=== PATIENT | female | born 1960 | race Caucasian/White ===

== ENCOUNTER 2025-03-04 18:11 | Inpatient (IN) | payer MEDICAID ==
[~2025-03-04] VITALS: Ht 165.1 cm; Wt 75.0 kg
[~2025-03-04 18:11] MED LIST: AZIT-74 PO; CARI250T; HYDR-1421; METH4PAK PO; QUET25TA37; SERT25TA84; TRAM50TA2 PO; TRAZ-227
--- NOTE | 2025-03-04 18:33 | ECG ---
[facility] Test Date: 2025-03-04 Test Time: 18:17:02 Pat Name: GERA REECE [facility] Gender[facility] F Operator Bearer Systems: KINDRA : 1960 Requested By: DIVYA BAUTISTA* Order Number: [id number] Reading MD: Pedro Pepe Measurements Intervals [place] Rate: 103 P: 86 [place]: 184 QRS: 83 QRSD: 99 T: 30 QT: 326 QTc: 427 Interpretive Statements Sinus tachycardia Multiple ventricular premature complexes Biatrial enlargement Consider right ventricular hypertrophy Electronically Signed On 03-05-2025 17:26:14 PST by Pedro Pepe Please click the below link to view image of tracing.
[2025-03-04] MEDS: IPRATROPIUM BROM 0.5 MG/2.5ML INH SOL NEB ONE (18:45)
[2025-03-04] MEDS: ALBUTEROL SULF 2.5 MG/0.5ML(0.5%) NEB SOLN NEB ONE ×2 (18:45→19:15)
[2025-03-04 18:57] LABS: Hematocrit 44.7 % (36.0-46.0); Hemoglobin 15.3 g/dL (12.2-16.2); Mean Corpuscular Hemoglobin 31.1 pg (28.0-32.0); Mean Corpuscular Volume 90.7 fL (80.0-100.0)
--- NOTE | 2025-03-04 18:59 | DVH ---
EXAM: XY CHEST XRAY 1 VIEW HISTORY: Shortness of breath TECHNIQUE: 1 view of the chest COMPARISON: XR CHEST 1 VIEW on DOS: 09/13/23 FINDINGS/IMPRESSION: LUNGS: No pleural effusion, consolidation, or pneumothorax. MEDIASTINUM: Unremarkable. BONES: No acute osseous abnormality. OTHER: None.
--- NOTE | 2025-03-04 19:14 | ED.PDOC ---
History of Present Illness HPI Comments 64 year-old female presents to the ED with a chief complaint of cough, SOB, and chest tightness as of X3 days. Patient reports a Hx of COPD, Epilepsy, Asthma, and GERD. Patient reports attempted alleviation via inhaler at home, with no relief. Patient denies symptoms of leg swelling, dizziness, weakness, or fever at this time. REVIEW OF SYSTEMS: General: No fever, no chills, or fatigue HEENT: No sore throat, no earache, no congestion, no neck pain. Cardiac: (+) chest tightness. No palpitations. Lungs: (+) shortness of breath, (+) cough. GI: No nausea, no vomiting, no diarrhea, no constipation, no abdominal pain : No dysuria, frequency, or urgency. No hematuria. Musculoskeletal: No joint pain , no joint swelling, no extremity edema. Skin: No rash, no itching. Neuro: No headache, no dizziness, no weakness (And as sated in HPI) PHYSICAL EXAM: General: (+) speaking in short sentences. Awake, alert and oriented. Skin: Skin in warm, dry and intact. Appropriate color for ethnicity. HEENT: The head is normocephalic and atraumatic. Conjunctivae are clear without exudates or hemorrhage. Sclera is non-icteric. Eyelids are normal in appearance without swelling or lesions. Oral mucosa is pink and moist Neck: The neck is supple with normal range of motion. No JVD. Cardiac: Heart rate and rhythm are normal. No murmurs, gallops, or rubs are auscultated. Respiratory: (+) diminished breath sounds bilaterally. (+) tachypneic. No signs of respiratory distress. Abdominal: Abdomen is soft, non-tender without distention, guarding or rigidity. Bowel sounds are present and normoactive in all four quadrants. Extremities: Lower extremities without edema. Neurological: The patient is awake, alert and oriented to person, place, and time with normal speech. Speech is clear. There is no facial asymmetry. Psychiatric: Appropriate mood and affect. Good judgement and insight. . Chief Complaint: Shortness of Breath Time Seen by MD: 19:00 Primary Care Provider: UNKNOWN Reviewed Notes: Medications, Allergies Allergies: Coded Allergies: Baclofen (Verified Allergy, Severe, 03/04/25) Codeine (Verified Allergy, Severe, 06/06/11) Penicillins (Verified Allergy, Severe, 06/06/11) Home Meds Active Scripts Prednisone (Prednisone) 20 Mg Tab, 40 MG PO DAILY for 5 Days, #10 MG Prov:ZHENG ISBELL MD 03/04/25 Ipratropium-Albuterol (Ipratropium [place]/Albut) 1 Franko Franko, 1 FRANKO IN Q4HPRN PRN for 5 Days, #30 UNITS Prov:ZHENG ISBELL MD 03/04/25 Albuterol Sulfate (Albuterol Sulfate) 0.083 % Neb, 1 VIAL NEB Q4HPRN PRN for 5 Days, #5 VIAL Prov:ZHENG ISBELL MD 03/04/25 Respiratory Therapy Supplies (Full Kit Nebulizer Set) Set Mis, UNIT XX ONCE, #1 Prov:ZHENG ISBELL MD 03/04/25 Azithromycin (Zithromax) 250 Mg Tab, 500 MG PO DAILY, #6 TAB take 500 mg po once then take 250 mg po qd2-5 thereafter Prov:JAMESON MASTERSON N.P. 02/27/13 Methylprednisolone (Medrol Dosepak) 4 Mg Arnold, 4 MG PO UD, #1 PACK Prov:JAMESON MASTERSON N.P. 02/27/13 Tramadol Hcl (Tramadol Hcl) 50 Mg Tab, 50 MG PO Q6HP PRN, #30 TAB Prov:JAMESON MASTERSON N.P. 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 Was a procedure done?: No EKG EKG : Pulse Rate (adult): 103 Comments Sinus tachycardia Multiple ventricular premature complexes Biatrial enlargement Consider right ventricular hypertrophy Differential Dx Considerations may include: Differential diagnoses considered includebut arenot limited to acute Bronchitis, Asthma, COPD, Pneumothorax, PE, CHF, Pulmonary HTN, Anemia, CO Poisoning, Methemoglobinemia, Hyperventilation, Metabolic Acidosis, Pulmonary Edema, Pneumonia, ACS, Pericardial Tamponade, Anxiety, other X-Ray, Labs, Meds, VS Vital Signs Date Time Temp Pulse Resp B/P (MAP) Pulse Ox O2 Delivery O2 Flow Rate FiO2 03/04/25 20:03 20 92 Nasal Cannula* 2 28 03/04/25 19:36 98.1 102 16 112/77 (89) 92 98.1 03/04/25 19:14 103 03/04/25 18:45 20 94 Room Air* 0 21 03/04/25 18:12 98.1 120 20 156/90 95 98.1 Lab Test 03/04/25 20:52 03/04/25 18:42 03/04/25 18:40 03/04/25 18:38 Range/Units Lactic Acid Level 2.5 *H 2.1 *H 0.4-2.0 mmol/L White Blood Count 6.6 4.4-10.8 10^3/uL Red Blood Count 4.92 4.0-5.20 10^6/uL Hemoglobin 15.3 12.2-16.2 g/dL Hematocrit 44.7 36.0-46.0 % Mean Corpuscular Volume 90.7 80.0-100.0 fL Mean Corpuscular Hemoglobin 31.1 28.0-32.0 pg Mean Corpuscular Hemoglobin Concent 34.3 32.0-36.0 g/dL Red Cell Distribution Width 13.9 11.8-14.3 % Platelet Count 306 140-450 10^3/uL Mean Platelet Volume 7.3 6.9-10.8 fL Neutrophils (%) (Auto) 37.0-80.0 % Lymphocytes (%) (Auto) 10.0-50.0 % Monocytes (%) (Auto) 0.0-12.0 % Basophils (%) (Auto) 0.0-2.0 % Neutrophils # (Auto) 1.6-8.6 10 ^3/uL Lymphocytes # (Auto) 0.4-5.4 10 ^3/uL Monocytes # (Auto) 0-1.3 10 ^3/uL Differential Total Cells Counted 100.0 100 Neutrophils % (Manual) 32 L 37.0-80.0 Band Neutrophils % (Manual) 0 Lymphocytes % (Manual) 58 H 10.0-50.0 Monocytes % (Manual) 9 0-12 Eosinophils % (Manual) 1 0-7 Basophils % (Manual) 0 0.0-2.0 Metamyelocytes % (manual) 0 Myelocytes % (Manual) 0 Promyelocytes % (Manual) 0 Blast Cells % (Manual) 0 Reactive Lymphocytes 0 Platelet Estimate Adequate Red Blood Cell Morphology Normal D-Dimer, Quantitative 0.50 H 0.0-0.49 mg/L FEU Sodium Level 144 136-145 mmol/L Potassium Level 4.6 3.5-5.1 mmol/L Chloride Level 106 98-107 mmol/L Carbon Dioxide Level 26 20-31 mmol/L Anion Gap 12 5-15 Blood Urea Nitrogen 12 9-23 mg/dL Creatinine 0.89 0.550-1.02 mg/dL Glomerular Filtration Rate Calc 72 >90 mL/min BUN/Creatinine Ratio 13.5 10.0-20.0 Serum Glucose 100 74-106 mg/dL Calcium Level 10.3 8.7-10.4 mg/dL Magnesium Level 2.2 1.6-2.6 mg/dL Total Bilirubin 0.5 0.2-1.0 mg/dL Aspartate Amino Transferase (AST) 35 13-40 U/L Alanine Aminotransferase (ALT) 35 7-40 U/L Alkaline Phosphatase 84 46-116 U/L Troponin I High Sensitivity 3 L </=34 ng/L B-Type Natriuretic Peptide 10.82 0-100 pg/mL Total Protein 7.3 5.7-8.2 g/dL Albumin 4.5 3.2-4.8 g/dL Blood Gas Specimen Type Arterial Blood Gas Sample Site Left radial Blood Gas Patient Temperature 37.0 Arterial Blood Date Drawn [id number] Arterial Blood pH 7.453 H 7.350-7.450 Arterial Blood Partial Pressure CO2 30.5 L 32.0-45.0 mmHg Arterial Blood Partial Pressure O2 59.7 L 83.0-108.0 mmHg Arterial Blood HCO3 20.9 L 21.0-28.0 mmol/L Arterial Blood Oxygen Saturation 90.5 L 94.0-98.0 % Arterial Blood Base Excess -1.9 -2.0-3.0 mmol/L Arterial Blood Oxyhemoglobin 89.2 L 94.0-98.0 % Arterial Blood Carboxyhemoglobin 0.9 0.5-1.5 % Arterial Blood Methemoglobin 0.5 0.0-1.5 % Arterial Blood Deoxyhemoglobin 9.4 H 0.0-5.0 % Rasta Test Yes Blood Gas Total Hemoglobin 15.30 12.0-16.0 g/dL Blood Gas Modality Room air FiO2 % 21.0 Influenza Type A Antigen Negative Negative Influenza Type B Antigen Negative Negative SARS-CoV-2 Antigen (Rapid) Negative NEGATIVE Current Medications Medications (Trade) Dose Ordered Sig/[place] Route Start Time Stop Time Status Last Admin Albuterol (Ventolin Medneb) 2.5 mg ONCE ONCE NEB 03/04/25 18:30 03/04/25 18:31 DC 03/04/25 18:45 Ipratropium [place] (Atrovent Medneb) 0.5 mg ONCE ONCE NEB 03/04/25 18:30 03/04/25 18:31 DC 03/04/25 18:45 Albuterol (Ventolin Medneb) 5 mg ONCE ONCE NEB 03/04/25 19:15 03/04/25 19:16 DC 03/04/25 19:15 Dexamethasone Sodium Phosphate (Decadron Injection) 10 mg ONCE ONCE IM 03/04/25 19:15 03/04/25 19:16 DC 03/04/25 19:35 Sodium Chloride 1,000 ml @ 2,000 mls/hr Q30M ONCE IV 03/04/25 20:00 03/04/25 20:29 DC 03/04/25 21:03 [place] [id number] Ph: [phone] DIAGNOSTIC IMAGING Diagnostic Imaging Report : [id number] Signed PATIENT: GERA REECE ACCT: [id number] UNIT: [id number] : 1960 LOC: ER ROOM / BED: / AGE / SEX: 64 / F ADM STATUS: REG ER SERVICE 211 ORDERING PHYSICIAN: ZHENG ISBELL MD PROCEDURE(s): CXR1 - CHEST XRAY 1 VIEW REASON: Shortness of breath ORDER NUMBER(s): [id number], ACCESSION NUMBER(s): [id number] EXAM: XY CHEST XRAY 1 VIEW HISTORY: Shortness of breath TECHNIQUE: 1 view of the chest COMPARISON: XR CHEST 1 VIEW on DOS: 09/13/23 FINDINGS/IMPRESSION: LUNGS: No pleural effusion, consolidation, or pneumothorax. MEDIASTINUM: Unremarkable. BONES: No acute osseous abnormality. OTHER: None. Time of 1ST Reevaluation: 19:39 Reevaluation 1ST: Unchanged Patient Education/Counseling: Diagnosis, Treatment Family Education/Counseling: No Family Present SEPSIS Sepsis Screen Date sepsis recognized/suspect: Mar 04, 2025 Time Sepsis recognized/suspect: 1813 Recent Procedure: No On Antibiotic Therapy: No Respiratory Rate >20: No Heart Rate >90: No Temp<36 C (96.8 F) or >38.3 C: No SBP <90 or MAP <65 mmHG: No New Acute Mental Status Change: No Is the patient on CPAP, BIPAP,: No Physician Orders Abg W/ Co-Ox (03/04/25 18:22) Chest Xray 1 View (03/04/25 18:22) Notify Md If Abnormal Vs (03/04/25 20:09) Ambulate (03/04/25 20:09) Vital Signs Date Time Temp Pulse Resp B/P (MAP) Pulse Ox O2 Delivery O2 Flow Rate FiO2 03/04/25 20:03 20 92 Nasal Cannula* 2 28 03/04/25 19:36 98.1 102 16 112/77 (89) 92 98.1 03/04/25 19:14 103 03/04/25 18:45 20 94 Room Air* 0 21 03/04/25 18:12 98.1 120 20 156/90 95 98.1 Laboratory Tests Test 03/04/25 18:42 03/04/25 20:52 Lactic Acid Level 2.1 mmol/L (0.4-2.0) *H 2.5 mmol/L (0.4-2.0) *H White Blood Count 6.6 10^3/uL (4.4-10.8) Medications Medications Dose Ordered Sig/[place] Route Start Time Stop Time Status Last Admin Dose Admin Albuterol 2.5 mg ONCE ONCE NEB 03/04/25 18:30 03/04/25 18:31 DC 03/04/25 18:45 Albuterol 5 mg ONCE ONCE NEB 03/04/25 19:15 03/04/25 19:16 DC 03/04/25 19:15 Dexamethasone Sodium Phosphate 10 mg ONCE ONCE IM 03/04/25 19:15 03/04/25 19:16 DC 03/04/25 19:35 Ipratropium [place] 0.5 mg ONCE ONCE NEB 03/04/25 18:30 03/04/25 18:31 DC 03/04/25 18:45 Sodium Chloride 1,000 ml @ 2,000 mls/hr Q30M ONCE IV 03/04/25 20:00 03/04/25 20:29 DC 03/04/25 21:03 Departure 1 Departure Time of Disposition: 19:58 Impression: Primary Impression: COPD exacerbation Disposition: ADMITTED INPATIENT Condition: Stable e-Prescriptions Prednisone (Prednisone) 20 Mg Tab 40 MG PO DAILY for 5 Days, #10 MG Prov: ZHENG ISBELL MD 03/04/25 Ipratropium-Albuterol (Ipratropium [place]/Albut) 1 Franko Franko 1 FRANKO IN Q4HPRN PRN for 5 Days, #30 UNITS Prov: ZHENG ISBELL MD 03/04/25 Albuterol Sulfate (Albuterol Sulfate) 0.083 % Neb 1 VIAL NEB Q4HPRN PRN for 5 Days, #5 VIAL Prov: ZHENG ISBELL MD 03/04/25 Respiratory Therapy Supplies (Full Kit Nebulizer Set) Set Mis UNIT XX ONCE, #1 Prov: ZHENG ISBELL MD 03/04/25 Comments MDM 64-year-old female with a history of COPD presenting with shortness of breath. CXR: No acute finding ECG: Sinus rhythm, no ischemic changes Labs: Lactic acid 2.1, IV fluids administered. CBC, BMP, troponin, BNP results reviewed and not urgently actionable age adjusted D-dimer within normal limits O2 supplementation to maintain SpO> 90% Albuterol ipratropium via neb administered IM Decadron administered Patients dyspnea minimally improved improved, SpO2 92% on room air. She continues to have dyspnea on exertion. Patient admitted to hospitalist service for further treatment, evaluation and monitoring. Critical Care Note Critical Care Time?: No Stability Stability form required: No Heart Score Heart Score: Heart Score Response (Comments) Value History N/A 0 EKG N/A 0 Age N/A 0 Risk Factors N/A 0 Troponin N/A 0 Total 0 I personally scribed for ZHENG ISBELL MD ([email or web address]) on 03/04/25 at 19:14. Electronically submitted by Jacy Dewey ([employer]). I personally scribed for ZHENG ISBELL MD ([email or web address]) on 03/04/25 at 19:15. Electronically submitted by Jacy Dewey ([employer]). ZHENG ISBELL MD Mar 04, 2025 19:14
[2025-03-04 19:16] LABS: Alanine Aminotransferase 35 U/L (7-40); Albumin 4.5 g/dL (3.2-4.8); Alkaline Phosphatase 84 U/L (46-116); Anion Gap 12 (5-15); BUN/Creatinine Ratio 13.5 (10.0-20.0); Blood Urea Nitrogen 12 mg/dL (9-23); Calcium 10.3 mg/dL (8.7-10.4); Carbon Dioxide 26 mmol/L (20-31); Chloride 106 mmol/L (98-107); Glucose 100 mg/dL (74-106); Potassium 4.6 mmol/L (3.5-5.1); Sodium 144 mmol/L (136-145); Total Protein 7.3 g/dL (5.7-8.2)
[2025-03-04 19:17] LABS: Bilirubin, Total 0.5 mg/dL (0.2-1.0)
[2025-03-04 19:41] LABS: Lactic Acid w/Reflex 2.1 mmol/L (0.4-2.0)
[2025-03-04 19:53] LABS: Base Excess -1.9 mmol/L (-2.0-3.0)
[2025-03-04 19:58] LABS: Total Cells Counted 100.0 (100)
[2025-03-04 19:59] LABS: RBC Morphology Normal
[2025-03-04] MEDS ORDERED: IPRA0.00 IN (20:09)
[2025-03-04] MEDS ORDERED: RESPMIS2 XX (20:09)
[2025-03-04] MEDS ORDERED: PRED20TA2 PO (20:09)
[2025-03-04] MEDS ORDERED: ALBU0.084 NEB (20:09)
[2025-03-04 20:11] LABS: COVID19 ANTIGEN SOFIA FIA NEGATIVE (NEGATIVE)
[2025-03-04] MEDS: SODIUM CHLORIDE 0.9% 1,000 ML IV ONE ×2 (21:03→22:30)
[2025-03-04] MEDS ORDERED: AZITHROMYCIN 500MG/250ML 250 ML IV ONE (22:30)
[2025-03-04] MEDS: AZITHROMYCIN 250 MG TAB PO SCH (23:20)
[2025-03-04] MEDS: levETIRAcetam 500 MG TAB PO ONE (23:30)
[2025-03-04] MEDS: ENOXAPARIN SOD 40 MG/0.4 ML SYRINGE SC SCH (23:31)
[2025-03-04 23:46] LABS: Lactic Acid w/Reflex 2.2 mmol/L (0.4-2.0)
[2025-03-04 23:54] VITALS: BP 112/77; PULSE 63; RESP 20; TEMP 98.1; O2SAT 95
[2025-03-05] VITALS (18 sets, daily range): BP systolic 109–123; BP diastolic 72–81; PULSE 60–80; RESP 16–21; TEMP 97.7–98.3; O2SAT 93–100
--- NOTE | 2025-03-05 05:22 | DVHHPRES ---
History of Present Illness Resident Creating Document: MAIRA PURI MD History of Present Illness Patient is a 64-year-old female with past medical history of COPD, Epilepsy on Keppra, asthma, GERD who came to the ED with chief complaints of shortness of the breath, chest tightness, cough associated with fever, chills since 3 days . Patient states that she does not use home oxygen, uses albuterol inhaler as needed and has attempted using it multiple times with no relief since 3 days. She also states that she had walking pneumonia 2 weeks ago for which she was prescribed oral antibiotics and finish the course. Patient denies any nausea, vomiting, dizziness, weakness. PMHx: COPD, epilepsy on Keppra, asthma, GERD PSHx: Denies Family history: reviewed, noncontributory Social history: smoked half pack a day since 40 years, drinks occasionally, marijuana edibles at night occasionally Home medication: Keppra 750 b.i.d. albuterol inhaler Allergic history: penicillin, codeine, baclofen PCP: Dr. Medina Patient seen in [facility]. Patient is on 2 L oxygen and complains of shortness of breath, dry cough but denies fever, chills, nausea, vomiting. Review of Systems Constitutional: Yes: Fever, Chills; No: Sweats, Weakness, Malaise, Other Eyes: No: Pain, Vision change, Conjunctivae inflammation, Eyelid inflammation, Other, Redness ENT: No: Ear pain, Ear discharge, Nose pain, Nose discharge, Nose congestion, Mouth pain, Mouth swelling, Throat pain, Throat swelling, Other Respiratory: Cough, Dry, Shortness of breath Cardiovascular: Chest Pain; No: Palpitations, Orthopnea, Paroxysmal Noc. Dyspnea, Edema, Lt Headedness, Other Gastrointestinal: No: Nausea, Vomiting, Abdominal Pain, Diarrhea, Constipation, Melena, Hematochezia, Other Genitourinary: No Dysuria, No Frequency, No Incontinence, No Hematuria, No Retention, No Other Musculoskeletal: No: other, neck pain, shoulder pain, arm pain, back pain, hand pain, leg pain, foot pain Skin: No: Rash, Lesions, Jaundice, Bruising, Other Neurological: No: Weakness, Numbness, Incoordination, Change in speech, Confusion, Seizures, Other Allergies: Coded Allergies: Baclofen (Verified Allergy, Severe, 03/04/25) Codeine (Verified Allergy, Severe, 06/06/11) Penicillins (Verified Allergy, Severe, 06/06/11) Medications Current Medications Medications Dose Ordered Sig/Gustabo Route Start Time Stop Time Status Last Admin Dose Admin Acetaminophen 650 mg Q6HP PRN PO 03/04/25 22:30 Enoxaparin Sodium 40 mg DAILY SC 03/04/25 22:30 03/04/25 23:31 40 MG Albuterol 2.5 mg Q4HPRN PRN NEB 03/04/25 22:30 Ipratropium [place] 0.5 mg Q4HWA [facility] 03/05/25 06:00 Levetiracetam 750 mg BID PO 03/05/25 10:00 Pantoprazole Sodium 40 mg DAILY@0600 PO 03/05/25 06:00 Azithromycin 500 mg DAILY PO 03/04/25 23:15 03/04/25 23:20 500 MG Prednisone 40 mg DAILY PO 03/06/25 10:00 Exam Vital Signs Vital Signs Date Time Temp Pulse Resp B/P (MAP) Pulse Ox O2 Delivery O2 Flow Rate FiO2 03/05/25 03:07 97.7 72 18 109/72 (84) 96 97.7 03/05/25 03:07 Nasal Cannula* 2 28 Exam General: Patient alert and oriented in person, place and time. Patient following commands. in moderate distress HEENT: Normocephalic, atraumatic, moist mucous membranes Respiratory/pulmonary: bilateral rhonchi heard on auscultation Cardiovascular: Normal heart sounds S1 and S2 with no associated murmurs Abdomen: Abdomen nondistended, there is no pain to palpation in any of the abdominal quadrants, no palpable masses. Extremities: There is no peripheral edema present at the lower extremities. Peripheral Pulses: 3+ Radial (R). 3+ Radial (L). 3+ Dorsalis pedis (R). 3+ Dorsalis pedis(L) Skin: No rashes or pruritus, there is no sacral edema present at this time. Neurological: Intact cranial nerves with no focal neurologic deficits Labs/Xrays Labs Test 03/05/25 00:58 03/04/25 18:42 03/04/25 18:40 03/04/25 18:38 Range/Units Lactic Acid Level 1.4 0.4-2.0 mmol/L White Blood Count 6.6 4.4-10.8 10^3/uL Red Blood Count 4.92 4.0-5.20 10^6/uL Hemoglobin 15.3 12.2-16.2 g/dL Hematocrit 44.7 36.0-46.0 % Mean Corpuscular Volume 90.7 80.0-100.0 fL Mean Corpuscular Hemoglobin 31.1 28.0-32.0 pg Mean Corpuscular Hemoglobin Concent 34.3 32.0-36.0 g/dL Red Cell Distribution Width 13.9 11.8-14.3 % Platelet Count 306 140-450 10^3/uL Mean Platelet Volume 7.3 6.9-10.8 fL Neutrophils (%) (Auto) 37.0-80.0 % Lymphocytes (%) (Auto) 10.0-50.0 % Monocytes (%) (Auto) 0.0-12.0 % Basophils (%) (Auto) 0.0-2.0 % Neutrophils # (Auto) 1.6-8.6 10 ^3/uL Lymphocytes # (Auto) 0.4-5.4 10 ^3/uL Monocytes # (Auto) 0-1.3 10 ^3/uL Differential Total Cells Counted 100.0 100 Neutrophils % (Manual) 32 L 37.0-80.0 Band Neutrophils % (Manual) 0 Lymphocytes % (Manual) 58 H 10.0-50.0 Monocytes % (Manual) 9 0-12 Eosinophils % (Manual) 1 0-7 Basophils % (Manual) 0 0.0-2.0 Metamyelocytes % (manual) 0 Myelocytes % (Manual) 0 Promyelocytes % (Manual) 0 Blast Cells % (Manual) 0 Reactive Lymphocytes 0 Platelet Estimate Adequate Red Blood Cell Morphology Normal D-Dimer, Quantitative 0.50 H 0.0-0.49 mg/L FEU Sodium Level 144 136-145 mmol/L Potassium Level 4.6 3.5-5.1 mmol/L Chloride Level 106 98-107 mmol/L Carbon Dioxide Level 26 20-31 mmol/L Anion Gap 12 5-15 Blood Urea Nitrogen 12 9-23 mg/dL Creatinine 0.89 0.550-1.02 mg/dL Glomerular Filtration Rate Calc 72 >90 mL/min BUN/Creatinine Ratio 13.5 10.0-20.0 Serum Glucose 100 74-106 mg/dL Calcium Level 10.3 8.7-10.4 mg/dL Magnesium Level 2.2 1.6-2.6 mg/dL Total Bilirubin 0.5 0.2-1.0 mg/dL Aspartate Amino Transferase (AST) 35 13-40 U/L Alanine Aminotransferase (ALT) 35 7-40 U/L Alkaline Phosphatase 84 46-116 U/L Troponin I High Sensitivity 3 L </=34 ng/L B-Type Natriuretic Peptide 10.82 0-100 pg/mL Total Protein 7.3 5.7-8.2 g/dL Albumin 4.5 3.2-4.8 g/dL Blood Gas Specimen Type Arterial Blood Gas Sample Site Left radial Blood Gas Patient Temperature 37.0 Arterial Blood Date Drawn [id number] Arterial Blood pH 7.453 H 7.350-7.450 Arterial Blood Partial Pressure CO2 30.5 L 32.0-45.0 mmHg Arterial Blood Partial Pressure O2 59.7 L 83.0-108.0 mmHg Arterial Blood HCO3 20.9 L 21.0-28.0 mmol/L Arterial Blood Oxygen Saturation 90.5 L 94.0-98.0 % Arterial Blood Base Excess -1.9 -2.0-3.0 mmol/L Arterial Blood Oxyhemoglobin 89.2 L 94.0-98.0 % Arterial Blood Carboxyhemoglobin 0.9 0.5-1.5 % Arterial Blood Methemoglobin 0.5 0.0-1.5 % Arterial Blood Deoxyhemoglobin 9.4 H 0.0-5.0 % Rasta Test Yes Blood Gas Total Hemoglobin 15.30 12.0-16.0 g/dL Blood Gas Modality Room air FiO2 % 21.0 Influenza Type A Antigen Negative Negative Influenza Type B Antigen Negative Negative SARS-CoV-2 Antigen (Rapid) Negative NEGATIVE SEPSIS Sepsis Screen Date sepsis recognized/suspect: Mar 04, 2025 Time Sepsis recognized/suspect: 1813 Recent Procedure: No On Antibiotic Therapy: No Respiratory Rate >20: No Heart Rate >90: No Temp<36 C (96.8 F) or >38.3 C: No SBP <90 or MAP <65 mmHG: No New Acute Mental Status Change: No Is the patient on CPAP, BIPAP,: No Physician Orders Admit (03/04/25 22:27) Code Status (12/17/25 22:27) Oxygen Per Hour (03/04/25:) Complete Blood Count (03/05/25 04:00) Comprehensive Metabolic Panel (03/05/25 04:00) Echo 2d Mode Cardiac Dop (03/04/25:) Condition: Serious (03/04/25:) Acetaminophen Tablet (Tylenol Tablet) (03/04/25 22:30) Bedrest With Bathroom Privileg (03/04/25:) Enoxaparin Sodium (Lovenox) (03/04/25:30) Oxygen By Nasal Cannula (03/04/25:) Stat Ekg For Chest Pain (03/04/25:) Notify Of Changes From Base (03/04/25:) Software Application Tester For 24 Hours (03/04/25:) Emergency Dysrhythmia Protocol (03/04/25:) Rhythm Strips Once Every Shift (03/04/25:) Blood Culture (03/04/25:) Mrsa Screen (03/04/25:) Drug Screen (03/04/25:) Respiratory Culture W/ Gs (03/04/25:) Albuterol Medneb (Ventolin Medneb) (03/04/25:30) Ipratropium Medneb (Atrovent Medneb) (03/05/25 06:00) Levetiracetam Tablet (Keppra Tablet) (03/05/25 10:00) Sodium Chloride 0.9% (03/04/25:30) Regular Diet (03/05/25 Breakfast) Pantoprazole Tablet (Protonix Tablet) (03/05/25 06:00) Azithromycin Tablet (Zithromax Tablet) (03/04/25 23:15) Prednisone Tablet (03/06/25 10:00) Vital Signs Date Time Temp Pulse Resp B/P (MAP) Pulse Ox O2 Delivery O2 Flow Rate FiO2 03/05/25 03:07 97.7 72 18 109/72 (84) 96 97.7 03/05/25 03:07 72 18 96 Nasal Cannula* 2 28 03/05/25 02:40 Room Air* 0 21 03/05/25 01:04 98.6 72 20 114/72 (86) 94 98.6 03/04/25 23:54 98.1 63 20 112/77 95 2.0 98.1 Laboratory Tests Test 03/04/25 18:42 03/04/25 20:52 03/04/25 23:00 03/05/25 00:58 Lactic Acid Level 2.1 mmol/L (0.4-2.0) *H 2.5 mmol/L (0.4-2.0) *H 2.2 mmol/L (0.4-2.0) *H 1.4 mmol/L (0.4-2.0) White Blood Count 6.6 10^3/uL (4.4-10.8) Medications Medications Dose Ordered Sig/Gustabo Route Start Time Stop Time Status Last Admin Dose Admin Albuterol 2.5 mg ONCE ONCE NEB 03/04/25 18:30 03/04/25 18:31 DC 03/04/25 18:45 2.5 MG Albuterol 5 mg ONCE ONCE NEB 03/04/25 19:15 03/04/25 19:16 DC 03/04/25 19:15 5 MG Azithromycin 500 mg DAILY PO 03/04/25 23:15 03/04/25 23:20 500 MG Dexamethasone Sodium Phosphate 10 mg ONCE ONCE IM 03/04/25 19:15 03/04/25 19:16 DC 03/04/25 19:35 10 MG Enoxaparin Sodium 40 mg DAILY SC 03/04/25 22:30 03/04/25 23:31 40 MG Ipratropium [place] 0.5 mg ONCE ONCE NEB 03/04/25 18:30 03/04/25 18:31 DC 03/04/25 18:45 0.5 MG Levetiracetam 750 mg ONCE ONCE PO 03/04/25 22:30 03/04/25 23:10 DC 03/04/25 23:30 750 MG Sodium Chloride 1,000 ml @ 2,000 mls/hr Q30M ONCE IV 03/04/25 20:00 03/04/25 20:29 DC 03/04/25 21:03 2,000 MLS/HR Assessment/Plan Assessment/Plan Acute hypoxic respiratory failure due to COPD exacerbation/pneumonia COPD exacerbation possible pneumonia Gram-positive/Gram-negative bacteria Sepsis due to above MRSA Blood, sputum culture IV fluids Lactic acid Elevated Albuterol, ipratropium med nebs q.4 azithromycin Prednisone 40 mg p.o. Check echo Asthma - albuterol med neb Epilepsy - continue home meds GERD Regular diet PPI prophylaxis: Protonix DVT prophylaxis: Lovenox Goals of care addressed with the patient for more than 27 minutes: Full code status Case discussed with Dr. Puri , patient and nurse Plan discussed with: Patient My Orders Orders - RUDDY GARCIA RESIDENT Procedure Category Date Status Time Admit ADMIT 03/04/25 Transmitted 22:27 Code Status CODE 03/04/25 Transmitted 22:27 Oxygen Per Hour RT 03/04/25 Transmitted 22:27 Complete Blood Count LAB 03/05/25 Logged 04:00 Comprehensive LAB 03/05/25 Logged Metabolic Panel 04:00 Echo 2d Mode Cardiac US 03/04/25 Logged DOP 22:27 Condition: Serious TYLER 03/04/25 In Process 22:27 Acetaminophen Tablet PHA 03/04/25 In Process (Tylenol Tablet) 22:30 Bedrest With Bathroom TYLER 03/04/25 In Process Privileg 22:27 Enoxaparin Sodium PHA 03/04/25 In Process (Lovenox) 22:30 Oxygen By Nasal RT 03/04/25 Transmitted Cannula 22:27 Stat Ekg For Chest TYLER 03/04/25 In Process Pain 22:27 Notify Of Changes TYLER 03/04/25 In Process From Base 22:27 Software Application Tester For TYLER 03/04/25 In Process 24 Hours 22:27 Emergency Dysrhythmia YTLER 03/04/25 In Process Protocol 22:27 Rhythm Strips Once TYLER 03/04/25 In Process Every Shift 22:27 Blood Culture DANIS 03/04/25 In Process 22:27 Mrsa Screen DANIS 03/04/25 Logged 22:27 Drug Screen LAB 03/04/25 Logged 22:27 Respiratory Culture DANIS 03/04/25 Logged W/ Gs 22:27 Albuterol Medneb PHA 03/04/25 In Process (Ventolin Medneb) 22:30 Ipratropium Medneb PHA 03/05/25 In Process (Atrovent Medneb) 06:00 Levetiracetam Tablet PHA 03/05/25 In Process (Keppra Tablet) 10:00 Sodium Chloride 0.9% PHA 03/04/25 In Process 22:30 Regular Diet DIET 03/05/25 Transmitted Breakfast Pantoprazole Tablet PHA 03/05/25 In Process (Protonix Tablet) 06:00 Azithromycin Tablet PHA 03/04/25 In Process (Zithromax Tablet) 23:15 Visit Coding STANDARD RES Billing Provider: MAIRA PURI MD Date of Service if different f: Mar 04, 2025 Common Visit Codes: [id number] INP/OBS CARE (HIGH) Secondary Visit Codes: [id number] CARE PLAN 30 MINUTES RUDDY GARCIA RESIDENT Mar 05, 2025 05:22
[2025-03-05] MEDS: IPRATROPIUM BROM 0.5 MG/2.5ML INH SOL NEB SCH (05:48)
[2025-03-05] MEDS: ALBUTEROL SULF 2.5 MG/0.5ML(0.5%) NEB SOLN NEB PRN (05:49)
[2025-03-05 06:39] LABS: Hematocrit 36.9 % (36.0-46.0); Hemoglobin 12.7 g/dL (12.2-16.2); Mean Corpuscular Hemoglobin 31.1 pg (28.0-32.0); Mean Corpuscular Volume 90.3 fL (80.0-100.0); Nucleated Red Blood Cells % 0.8 %
[2025-03-05] MEDS: predniSONE 20 MG TAB PO ONE (06:43)
[2025-03-05] MEDS: PANTOPRAZOLE 40 MG TAB PO SCH (06:43)
[2025-03-05 07:00] LABS: Alanine Aminotransferase 27 U/L (7-40); Alkaline Phosphatase 65 U/L (46-116); Calcium 8.8 mg/dL (8.7-10.4); Carbon Dioxide 20 mmol/L (20-31); Potassium 3.8 mmol/L (3.5-5.1)
[2025-03-05 07:01] LABS: Albumin 3.6 g/dL (3.2-4.8); Anion Gap 12 (5-15); BUN/Creatinine Ratio 16.9 (10.0-20.0); Blood Urea Nitrogen 10 mg/dL (9-23); Sodium 141 mmol/L (136-145); Total Protein 6.1 g/dL (5.7-8.2)
[2025-03-05 07:02] LABS: Bilirubin, Total 0.3 mg/dL (0.2-1.0)
[2025-03-05 07:14] LABS: Chloride 109 mmol/L (98-107); Glucose 179 mg/dL (74-106)
[2025-03-05] MEDS: levETIRAcetam 500 MG TAB PO SCH (09:09)
[2025-03-05] MEDS ORDERED: AZITHROMYCIN 500MG/250ML 250 ML IV SCH (10:00)
[2025-03-05 10:15] LABS: Hematocrit 36.4 % (36.0-46.0); Hemoglobin 12.6 g/dL (12.2-16.2); Mean Corpuscular Hemoglobin 31.2 pg (28.0-32.0); Mean Corpuscular Volume 90.5 fL (80.0-100.0); Nucleated Red Blood Cells % 0.8 %
[2025-03-05 14:25] LABS: Urine Protein, UAD Negative (Negative)
[2025-03-05 14:26] LABS: Cannabinoid Screen, Urine Neg (NEGATIVE)
[2025-03-05 14:27] LABS: Amphetamine Screen, Urine Neg (NEGATIVE); Barbiturate Scree,Urine Neg (NEGATIVE); Benzodiazephine Screen, Urine Neg (NEGATIVE); Cocaine Screen, Urine Neg (NEGATIVE); Opiate Scree,Urine Neg (NEGATIVE); Phencyclidine Screen, Urine Neg (NEGATIVE)
[2025-03-05] MEDS: MORPHINE SULFATE 4 MG/ML SYR/VIAL IV PRN (15:05)
--- NOTE | 2025-03-05 15:57 | DVHPNRES ---
Progress Note Date Seen: Mar 05, 2025 Resident Creating Document: ONEIL SOLITARIO RESIDENT Medical Necessity Reason Pt with a Central, PICC or Fol: No Subjective Review of Systems Patient is a 64-year-old female with past medical history of COPD, Epilepsy on Keppra, asthma, GERD who came to the ED with chief complaints of shortness of the breath, chest tightness, cough associated with fever, chills since 3 days . Patient states that she does not use home oxygen, uses albuterol inhaler as needed and has attempted using it multiple times with no relief since 3 days. She also states that she had walking pneumonia 2 weeks ago for which she was prescribed oral antibiotics and finish the course. Patient denies any nausea, vomiting, dizziness, weakness. The patient and her 2 sisters went to [facility], all of them had flu-like symptoms. The patient's symptoms were the worst amongst all of them. PMHx: COPD, epilepsy on Keppra, asthma, GERD PSHx: Denies Family history: reviewed, noncontributory Social history: smoked half pack a day since 40 years, drinks occasionally, marijuana edibles at night occasionally Home medication: Keppra 750 b.i.d. albuterol inhaler Allergic history: penicillin, codeine, baclofen PCP: Dr. Medina (based on [place]) The patient was seen and examined at bedside. Patient was on 2 L oxygen, she endorsed severe coughing while history taking. She reports having increasing shortness of breaths. Her chest tightness improved. No other new complaints reported. Objective vital signs Vital Sign Date Time Temp Pulse Resp B/P (MAP) Pulse Ox O2 Delivery O2 Flow Rate FiO2 03/05/25 15:49 74 16 118/70 03/05/25 13:29 98 03/05/25 13:24 Nasal Cannula* 2 28 03/05/25 12:57 98.3 98.3 Total Intake and Output 03/04/25 03/04/25 03/05/25 14:59 22:59 06:59 Intake Total 150 ml Output Total 0 ml Balance 150 ml medications Current Medications Medications Dose Ordered Sig/Gustabo Route Start Time Stop Time Status Last Admin Dose Admin Acetaminophen 650 mg Q6HP PRN PO 03/04/25 22:30 Enoxaparin Sodium 40 mg DAILY SC 03/04/25 22:30 03/05/25 09:08 40 MG Albuterol 2.5 mg Q4HPRN PRN NEB 03/04/25 22:30 03/05/25 13:24 2.5 MG Ipratropium [place] 0.5 mg Q4HWA NEB 03/05/25 06:00 03/05/25 13:24 0.5 MG Levetiracetam 750 mg BID PO 03/05/25 10:00 03/05/25 09:09 750 MG Pantoprazole Sodium 40 mg DAILY@0600 PO 03/05/25 06:00 03/05/25 06:43 40 MG Azithromycin 500 mg DAILY PO 03/04/25 23:15 03/05/25 09:09 500 MG Prednisone 40 mg DAILY PO 03/06/25 10:00 Guaifenesin/ Dextromethorphan 10 ml Q4HP PRN PO 03/05/25 12:30 Alprazolam 0.25 mg Q12HP PRN PO 03/05/25 12:30 Morphine Sulfate 1 mg Q4HP PRN IV 03/05/25 13:00 03/05/25 15:05 1 MG Examination Exam General: Patient alert and oriented in person, place and time. Patient following commands. in moderate distress HEENT: Normocephalic, atraumatic, moist mucous membranes Respiratory/pulmonary: bilateral wheezing heard on auscultation Cardiovascular: Normal heart sounds S1 and S2 with no associated murmurs Abdomen: Abdomen nondistended, there is no pain to palpation in any of the abdominal quadrants, no palpable masses. Extremities: There is no peripheral edema present at the lower extremities. Peripheral Pulses: 3+ Radial (R). 3+ Radial (L). 3+ Dorsalis pedis (R). 3+ Dorsalis pedis(L) Skin: No rashes or pruritus, there is no sacral edema present at this time. Neurological: Intact cranial nerves with no focal neurologic deficits laboratory and microbiology Laboratory Tests 03/05/25 09:50 03/05/25 05:08 Test 03/05/25 05:08 Range/Units Serum Glucose 179 H 74-106 mg/dL Labs and/or images reviewed: Labs reviewed by me, Image(s) reviewed by me Problem List/Assessment/Plan Problem List/Assessment/Plan Acute hypoxic respiratory failure due to COPD exacerbation/pneumonia COPD exacerbation possible pneumonia Gram-positive/Gram-negative bacteria Sepsis due to above MRSA Blood, sputum culture sent ABG: PH 7.4, pCO2 30.5 which is low, ABG PO2 59.7 low, ABG bicarbonate 20.9 low, ABG oxygen saturation 90.5 low IV fluids Lactic acid Elevated, trending down Albuterol, ipratropium med nebs q.4 Patient's WBC trending down, currently 2.1, most likely viral infection. azithromycin Prednisone 40 mg p.o. EKG: Premature ventricular contractions, no acute ischemic changes Echo completed, pending results Asthma - albuterol med neb Epilepsy - Keppra 750 b.i.d. continued GERD -Protonix continued Regular diet PPI prophylaxis: Protonix DVT prophylaxis: Lovenox Goals of care addressed with the patient for more than 27 minutes: Full code status Case discussed with Dr. Clark, patient and nurse Plan discussed with: Patient Plan discussed with: Patient, Other (RN) Visit Coding STANDARD RES Billing Provider: LAN CLARK MD Date of Service if different f: Mar 05, 2025 Common Visit Codes: [id number] INP/OBS CARE(HIGH) ONEIL SOLITARIO RESIDENT Mar 05, 2025 15:57 LAN CLARK MD Mar 05, 2025 19:40
[2025-03-05] MEDS: ACETAMINOPHEN 325 MG TAB PO PRN (20:29)
[2025-03-05] MEDS: guaiFENesin-DM 100/10mg/5ml SYR PO PRN (22:24)
[2025-03-06] VITALS (19 sets, daily range): BP systolic 101–115; BP diastolic 44–77; PULSE 56–88; RESP 16–20; TEMP 97.6–98.5; O2SAT 93–100
[2025-03-06 06:17] LABS: Hematocrit 33.5 % (36.0-46.0); Hemoglobin 11.3 g/dL (12.2-16.2); Mean Corpuscular Hemoglobin 30.5 pg (28.0-32.0); Mean Corpuscular Volume 90.1 fL (80.0-100.0); Nucleated Red Blood Cells % 0.1 %
[2025-03-06 06:25] LABS: Potassium 3.6 mmol/L (3.5-5.1)
[2025-03-06 06:26] LABS: Anion Gap 11 (5-15); Calcium 9.3 mg/dL (8.7-10.4); Carbon Dioxide 25 mmol/L (20-31)
[2025-03-06 06:31] LABS: BUN/Creatinine Ratio 17.1 (10.0-20.0); Blood Urea Nitrogen 12 mg/dL (9-23); Glucose 103 mg/dL (74-106)
[2025-03-06 06:33] LABS: Chloride 109 mmol/L (98-107); Sodium 145 mmol/L (136-145)
[2025-03-06] MEDS: predniSONE 20 MG TAB PO SCH (09:38)
[2025-03-06] MEDS: ALPRAZolam 0.25 MG TAB PO PRN (12:10)
--- NOTE | 2025-03-06 14:03 | DVHPNRES ---
Progress Note Date Seen: Mar 06, 2025 Resident Creating Document: ONEIL SOLITARIO RESIDENT Medical Necessity Reason Pt with a Central, PICC or Fol: No Subjective Review of Systems Patient is a 64-year-old female with past medical history of COPD, Epilepsy on Keppra, asthma, GERD who came to the ED with chief complaints of shortness of the breath, chest tightness, cough associated with fever, chills since 3 days . Patient states that she does not use home oxygen, uses albuterol inhaler as needed and has attempted using it multiple times with no relief since 3 days. She also states that she had walking pneumonia 2 weeks ago for which she was prescribed oral antibiotics and finish the course. Patient denies any nausea, vomiting, dizziness, weakness. The patient and her 2 sisters went to [facility], all of them had flu-like symptoms. The patient's symptoms were the worst amongst all of them. PMHx: COPD, epilepsy on Keppra, asthma, GERD PSHx: Denies Family history: reviewed, noncontributory Social history: smoked half pack a day since 40 years, drinks occasionally, marijuana edibles at night occasionally Home medication: Keppra 750 b.i.d. albuterol inhaler Allergic history: penicillin, codeine, baclofen PCP: Dr. Medina (based on [place]) The patient was seen and examined at bedside. She reports having increasing shortness of breaths despite steroid and breathing treatments. No other new complaints reported. Objective vital signs Vital Sign Date Time Temp Pulse Resp B/P (MAP) Pulse Ox O2 Delivery O2 Flow Rate FiO2 03/06/25 13:53 68 18 99 03/06/25 13:47 Room Air* 0 21 03/06/25 12:55 97.8 112/77 (89) 97.8 Total Intake and Output 03/05/25 03/05/25 03/06/25 15:00 23:00 07:00 Intake Total 600 ml 400 ml Output Total 1 ml Balance 599 ml 400 ml medications Current Medications Medications Dose Ordered Sig/Gustabo Route Start Time Stop Time Status Last Admin Dose Admin Acetaminophen 650 mg Q6HP PRN PO 03/04/25 22:30 03/05/25 20:29 650 MG Enoxaparin Sodium 40 mg DAILY SC 03/04/25 22:30 03/06/25 09:39 40 MG Albuterol 2.5 mg Q4HPRN PRN NEB 03/04/25 22:30 03/05/25 22:29 2.5 MG Ipratropium [place] 0.5 mg Q4HWA NEB 03/05/25 06:00 03/06/25 13:47 0.5 MG Levetiracetam 750 mg BID PO 03/05/25 10:00 03/06/25 09:38 750 MG Pantoprazole Sodium 40 mg DAILY@0600 PO 03/05/25 06:00 03/06/25 06:20 40 MG Azithromycin 500 mg DAILY PO 03/04/25 23:15 03/06/25 09:38 500 MG Prednisone 40 mg DAILY PO 03/06/25 10:00 03/06/25 09:38 40 MG Guaifenesin/ Dextromethorphan 10 ml Q4HP PRN PO 03/05/25 12:30 03/06/25 12:10 10 ML Alprazolam 0.25 mg Q12HP PRN PO 03/05/25 12:30 03/06/25 12:10 0.25 MG Morphine Sulfate 1 mg Q4HP PRN IV 03/05/25 13:00 03/06/25 09:47 1 MG Examination Pt is lying on bed General Appearance: Alert, Oriented X3, Cooperative, Mild distress HEENT: Atraumatic, Mucous membranes moist/pink Respiratory: Wheezing present to auscultation, Normal air movement, No added sounds Cardiovascular: Regular rate, Normal S1, Normal S2, No murmurs Abdominal/ : Active bowel sounds, Soft, no distention, no tenderness Extremities: No edema, Normal pulses, No tenderness/swelling Skin: No Significant rash, except past surgical scars Neuro: Normal speech, sensorimotor deficits none Psych/Mental Status: Mental status NL, Mood NL Nurse was there as sound recording technician during examination laboratory and microbiology Laboratory Tests 03/06/25 04:53 Test 03/06/25 04:53 Range/Units Serum Glucose 103 74-106 mg/dL Microbiology Date/Time Source Procedure Growth Status 03/05/25 13:03 Sputum Gram Stain - Final Resulted 03/05/25 13:03 Sputum Respiratory Culture - Preliminary Resulted 03/04/25 23:06 Blood Blood Culture - Preliminary NO GROWTH AFTER 24 HOURS OF INCUBATION. Resulted Labs and/or images reviewed: Labs reviewed by me, Image(s) reviewed by me Problem List/Assessment/Plan Problem List/Assessment/Plan Acute hypoxic respiratory failure due to COPD exacerbation/pneumonia COPD exacerbation possible pneumonia Gram-positive/Gram-negative bacteria Sepsis due to above MRSA pending Blood culture negative after 24 hours, sputum culture normal oropharyngeal dio ABG: PH 7.4, pCO2 30.5 which is low, ABG PO2 59.7 low, ABG bicarbonate 20.9 low, ABG oxygen saturation 90.5 low IV fluids Lactic acid Elevated, trending down Albuterol, ipratropium med nebs q.4 Patient's WBC trending down, currently 2.1, most likely viral infection. azithromycin Prednisone 40 mg p.o. EKG: Premature ventricular contractions, no acute ischemic changes Echo completed, pending results Asthma - albuterol med neb Epilepsy - Keppra 750 b.i.d. continued GERD -Protonix continued Regular diet PPI prophylaxis: Protonix DVT prophylaxis: Lovenox Goals of care addressed with the patient for more than 27 minutes: Full code status Case discussed with Dr. Edwards, patient and nurse Plan discussed with: Patient, Other My Orders My Orders Orders - ONEIL SOLITARIO Procedure Category Date Status Time Oxygen By Nasal RT 03/06/25 Transmitted Cannula 10:58 Visit Coding STANDARD RES Billing Provider: ESTEBAN EDWARDS MD Date of Service if different f: Mar 06, 2025 Common Visit Codes: [id number] INP/OBS CARE(HIGH) ONEIL SOLITARIO Mar 06, 2025 14:03 ESTEBAN EDWARDS MD Mar 06, 2025 23:54
--- NOTE | 2025-03-06 17:43 | DVHSR ---
APPROVED REPORT EXAM: LIMITED Two-dimensional and M-mode echocardiogram with Doppler and color Doppler. Blood Pressure: 109/72 mmHg INDICATION Dyspnea rule out structural heart disease RISK FACTORS Height: 5'5, Weight: 144 DIMENSIONS LVDd 4.4 (3.8-5.7cm) LA (2D) 2.9 (1.9-4.0cm) Aortic Root 2.8 (2.0-3.7cm) LVDs 2.7 (2.5-4.0cm) LA (MM) (1.9-4.0cm) Aortic Cusp Exc 1.6 (1.5-2.0cm) EF (%) 60.0 (55-70%) Rt. Atrium (1.9-4.0cm) Asc. Aorta cm IVSd 0.7 (0.7-1.1cm) RV (D) 2.6 (1.8-2.4cm) PWd 0.7 (0.7-1.1cm) Mitral Valve Mitral Mitral Stenosis E wave 0.64m/s MV Mean GR. mmHg A wave 0.65m/s MV Peak GR. mmHg E/A ratio 1.0 2D MVA cm2 DECEL Time 151ms PRESS 1/2 Time ms Aortic Valve Aortic Valve Aortic Stenosis V1 0.92m/s AO Mean GR. 2mmHg V2 0.91m/s AO Peak GR. 3mmHg LVOT Diameter 2.0 (1.8-2.4cm) Doppler BRI 3.17cm2 Tricuspid Valve TR Velocity 1.80m/s RVSP 16mmHg Other Information Quality : Technically Limited Rhythm : Technically limited study due to patient position.body habitus.patient moving. Conclusion LVEF is normal at 60-65% Right ventricle size and function is normal
[2025-03-07] VITALS (21 sets, daily range): BP systolic 102–124; BP diastolic 66–92; PULSE 52–79; RESP 16–23; TEMP 97.5–98.1; O2SAT 91–99
[2025-03-07 05:34] LABS: Hematocrit 34.8 % (36.0-46.0); Hemoglobin 11.7 g/dL (12.2-16.2); Mean Corpuscular Hemoglobin 30.4 pg (28.0-32.0); Mean Corpuscular Volume 90.0 fL (80.0-100.0); Nucleated Red Blood Cells % 0.1 %
[2025-03-07 05:54] LABS: Alanine Aminotransferase 24 U/L (7-40); Albumin 3.4 g/dL (3.2-4.8); Alkaline Phosphatase 58 U/L (46-116); Anion Gap 9 (5-15); BUN/Creatinine Ratio 14.7 (10.0-20.0); Blood Urea Nitrogen 11 mg/dL (9-23); Calcium 9.5 mg/dL (8.7-10.4); Carbon Dioxide 25 mmol/L (20-31); Chloride 106 mmol/L (98-107); Glucose 94 mg/dL (74-106); Potassium 4.4 mmol/L (3.5-5.1); Sodium 140 mmol/L (136-145)
[2025-03-07 05:55] LABS: Bilirubin, Total 0.4 mg/dL (0.2-1.0); Total Protein 5.7 g/dL (5.7-8.2)
--- NOTE | 2025-03-07 15:31 | DVHPNRES ---
Progress Note Date Seen: Mar 07, 2025 Resident Creating Document: ZACH HOWARD RESIDENT Medical Necessity Reason Pt with a Central, PICC or Fol: No Subjective Review of Systems Patient is a 64-year-old female with past medical history of COPD, Epilepsy on Keppra, asthma, GERD who came to the ED with chief complaints of shortness of the breath, chest tightness, cough associated with fever, chills since 3 days . Patient states that she does not use home oxygen, uses albuterol inhaler as needed and has attempted using it multiple times with no relief since 3 days. She also states that she had walking pneumonia 2 weeks ago for which she was prescribed oral antibiotics and finish the course. Patient denies any nausea, vomiting, dizziness, weakness. The patient and her 2 sisters went to [facility], all of them had flu-like symptoms. The patient's symptoms were the worst amongst all of them. PMHx: COPD, epilepsy on Keppra, asthma, GERD PSHx: Denies Family history: reviewed, noncontributory Social history: smoked half pack a day since 40 years, drinks occasionally, marijuana edibles at night occasionally Home medication: Keppra 750 b.i.d. albuterol inhaler Allergic history: penicillin, codeine, baclofen PCP: Dr. Medina (based on [place]) The patient was seen and examined at bedside. She reports having increasing shortness of breaths despite steroid and breathing treatments. No other new complaints reported. 03/07/2025: Patient was seen and examined by me at the bedside today. Labs and charts were reviewed. Patient reports feeling much better but complains of slight chest pain as well as back pain when coughing. She states she has a dry cough and Robitussin has been continued, which is helping her slightly. Patient also endorses of a headache and on inquiry, states that she used to have a history of migraines which has not been active in a long while. Toradol 30 mg IV Q 8 PRN has been added. Overall she reports feeling much better. Objective vital signs Vital Sign Date Time Temp Pulse Resp B/P (MAP) Pulse Ox O2 Delivery O2 Flow Rate FiO2 03/07/25 14:58 56 20 96 03/07/25 13:00 98.1 121/92 (102) 98.1 03/07/25 12:11 Room Air* 0 21 Total Intake and Output 12/19/25 12/19/25 12/20/25 15:00 23:00 07:00 Intake Total 1000 ml 735 ml Output Total 600 ml Balance 1000 ml 135 ml medications Current Medications Medications Dose Ordered Sig/Gustabo Route Start Time Stop Time Status Last Admin Dose Admin Acetaminophen 650 mg Q6HP PRN PO 03/04/25 22:30 03/07/25 05:10 650 MG Enoxaparin Sodium 40 mg DAILY SC 03/04/25 22:30 03/07/25 10:35 40 MG Albuterol 2.5 mg Q4HPRN PRN NEB 03/04/25 22:30 03/05/25 22:29 2.5 MG Ipratropium [place] 0.5 mg Q4HWA NEB 03/05/25 06:00 03/07/25 14:50 0.5 MG Levetiracetam 750 mg BID PO 03/05/25 10:00 03/07/25 10:36 750 MG Pantoprazole Sodium 40 mg DAILY@0600 PO 03/05/25 06:00 03/07/25 05:08 40 MG Azithromycin 500 mg DAILY PO 03/04/25 23:15 03/07/25 10:36 500 MG Prednisone 40 mg DAILY PO 03/06/25 10:00 03/07/25 10:35 40 MG Guaifenesin/ Dextromethorphan 10 ml Q4HP PRN PO 03/05/25 12:30 03/06/25 21:31 10 ML Alprazolam 0.25 mg Q12HP PRN PO 03/05/25 12:30 03/07/25 13:20 0.25 MG Morphine Sulfate 1 mg Q4HP PRN IV 03/05/25 13:00 03/07/25 08:37 1 MG Examination Pt is lying on bed General Appearance: Alert, Oriented X3, Cooperative, Mild distress HEENT: Atraumatic, Mucous membranes moist/pink Respiratory: Bilateral wheezing and rhonchi present on auscultation Cardiovascular: Regular rate, Normal S1, Normal S2, No murmurs Abdominal/ : Active bowel sounds, Soft, no distention, no tenderness Extremities: No edema, Normal pulses, No tenderness/swelling Skin: No Significant rash, except past surgical scars Neuro: Normal speech, sensorimotor deficits none Psych/Mental Status: Mental status NL, Mood NL Nurse was there as associate professor of theology during examination laboratory and microbiology Laboratory Tests 03/07/25 05:18 Test 03/07/25 05:18 Range/Units Serum Glucose 94 74-106 mg/dL Microbiology Date/Time Source Procedure Growth Status 03/05/25 13:03 Sputum Gram Stain - Final Resulted 03/05/25 13:03 Sputum Respiratory Culture - Preliminary Resulted 03/05/25 13:00 Nose MRSA Screen - Final Complete 03/04/25 23:06 Blood Blood Culture - Preliminary NO GROWTH AFTER 48 HOURS OF INCUBATION. Resulted Labs and/or images reviewed: Labs reviewed by me, Image(s) reviewed by me Problem List/Assessment/Plan Problem List/Assessment/Plan Acute hypoxic respiratory failure due to COPD exacerbation/pneumonia COPD exacerbation possible pneumonia Gram-positive/Gram-negative bacteria Sepsis due to above MRSA pending Blood culture negative after 24 hours sputum g stain shows rare white blood cells seen, rare epithelial cells, few Gram-positive cocci in pairs, rare Gram-positive rods, mucus threads sputum culture normal oropharyngeal dio ABG: PH 7.4, pCO2 30.5 which is low, ABG PO2 59.7 low, ABG bicarbonate 20.9 low, ABG oxygen saturation 90.5 low IV fluids Lactic acid Elevated, trending down Albuterol, ipratropium med nebs q.4 Patient's WBC trending down, currently 2.1, most likely viral infection. azithromycin Prednisone 40 mg p.o. EKG: Premature ventricular contractions, no acute ischemic changes Echo: LVEF is normal at 60-65%, Right ventricle size and function is normal Asthma - albuterol med neb Epilepsy - Keppra 750 b.i.d. continued GERD -Protonix continued Regular diet PPI prophylaxis: Protonix DVT prophylaxis: Lovenox Goals of care addressed with the patient for more than 27 minutes: Full code status Case discussed with Dr. Edwadrs, patient and nurse Plan discussed with: Patient, Other (rn) My Orders My Orders Orders - ZACH HOWARD Procedure Category Date Status Time Ketorolac Injection PHA 03/07/25 Verified (Toradol Injection) 15:30 Visit Coding STANDARD RES Billing Provider: ESTEBAN EDWARDS MD Date of Service if different f: Mar 07, 2025 Common Visit Codes: [id number] INP/OBS CARE(HIGH) ZACH HOWARD Mar 07, 2025 15:31 ESTEBAN EDWARDS MD Mar 07, 2025 23:23
[2025-03-07 16:04] LABS: Chloride 106 mmol/L (98-107); Potassium 4.9 mmol/L (3.5-5.1); Sodium 142 mmol/L (136-145)
[2025-03-07 16:05] LABS: Anion Gap 9 (5-15); Carbon Dioxide 27 mmol/L (20-31)
[2025-03-07 16:06] LABS: Calcium 9.6 mg/dL (8.7-10.4)
[2025-03-07 16:11] LABS: BUN/Creatinine Ratio 21.0 (10.0-20.0); Blood Urea Nitrogen 17 mg/dL (9-23); Glucose 96 mg/dL (74-106)
[2025-03-08] VITALS (18 sets, daily range): BP systolic 108–148; BP diastolic 59–88; PULSE 55–95; RESP 15–20; TEMP 98.1–99.2; O2SAT 91–99
[2025-03-08 06:04] LABS: Hematocrit 38.1 % (36.0-46.0); Hemoglobin 12.8 g/dL (12.2-16.2); Mean Corpuscular Hemoglobin 30.7 pg (28.0-32.0); Mean Corpuscular Volume 91.0 fL (80.0-100.0); Nucleated Red Blood Cells % 0.1 %
[2025-03-08] MEDS: KETOROLAC TROMETH 30 MG/ML 1ML VIAL IV PRN (09:31)
--- NOTE | 2025-03-08 11:16 | DVH ---
CHEST RADIOGRAPH INDICATION: sob TECHNIQUE: Single frontal view of the chest was obtained COMPARISON: XY CHEST XRAY 1 VIEW on DOS: 03/04/25, XR CHEST 1 VIEW on DOS: 09/13/23 FINDINGS: Lines and Tubes: None Lungs: No focal consolidation. Pleura: No effusion. No pneumothorax. Cardiomediastinal contours: Unremarkable Bones: No acute osseous abnormality. IMPRESSION: 1. No acute cardiopulmonary disease.
--- NOTE | 2025-03-08 17:49 | DVHPNRES ---
Progress Note Date Seen: Mar 08, 2025 Resident Creating Document: ONEIL SOLITARIO Medical Necessity Reason Pt with a Central, PICC or Fol: No Subjective Review of Systems Patient is a 64-year-old female with past medical history of COPD, Epilepsy on Keppra, asthma, GERD who came to the ED with chief complaints of shortness of the breath, chest tightness, cough associated with fever, chills since 3 days . Patient states that she does not use home oxygen, uses albuterol inhaler as needed and has attempted using it multiple times with no relief since 3 days. She also states that she had walking pneumonia 2 weeks ago for which she was prescribed oral antibiotics and finish the course. Patient denies any nausea, vomiting, dizziness, weakness. The patient and her 2 sisters went to [facility], all of them had flu-like symptoms. The patient's symptoms were the worst amongst all of them. PMHx: COPD, epilepsy on Keppra, asthma, GERD PSHx: Denies Family history: reviewed, noncontributory Social history: smoked half pack a day since 40 years, drinks occasionally, marijuana edibles at night occasionally Home medication: Keppra 750 b.i.d. albuterol inhaler Allergic history: penicillin, codeine, baclofen PCP: Dr. Medina (based on [place]) The patient was seen and examined at bedside. He reports feeling cold and increasing dry cough. No other new complaints reported. Objective vital signs Vital Sign Date Time Temp Pulse Resp B/P (MAP) Pulse Ox O2 Delivery O2 Flow Rate FiO2 03/08/25 17:00 99.2 76 20 114/73 (87) 93 99.2 03/08/25 10:00 Room Air 03/08/25 10:00 0 21 Total Intake and Output 03/07/25 03/07/25 03/08/25 15:00 23:00 07:00 Intake Total 645 ml 1345 ml Balance 645 ml 1345 ml medications Current Medications Medications Dose Ordered Sig/[place]abo Route Start Time Stop Time Status Last Admin Dose Admin Acetaminophen 650 mg Q6HP PRN PO 03/04/25 22:30 03/07/25 05:10 650 MG Enoxaparin Sodium 40 mg DAILY SC 03/04/25 22:30 03/08/25 09:30 40 MG Albuterol 2.5 mg Q4HPRN PRN NEB 03/04/25 22:30 03/08/25 14:31 2.5 MG Ipratropium [place] 0.5 mg Q4HWA NEB 03/05/25 06:00 03/08/25 14:31 0.5 MG Levetiracetam 750 mg BID PO 03/05/25 10:00 03/08/25 09:30 750 MG Pantoprazole Sodium 40 mg DAILY@0600 PO 03/05/25 06:00 03/08/25 05:01 40 MG Azithromycin 500 mg DAILY PO 03/04/25 23:15 03/08/25 09:30 500 MG Prednisone 40 mg DAILY PO 03/06/25 10:00 03/08/25 09:29 40 MG Guaifenesin/ Dextromethorphan 10 ml Q4HP PRN PO 03/05/25 12:30 03/08/25 09:30 10 ML Alprazolam 0.25 mg Q12HP PRN PO 03/05/25 12:30 03/08/25 01:55 0.25 MG Morphine Sulfate 1 mg Q4HP PRN IV 03/05/25 13:00 03/08/25 10:12 1 MG Ketorolac Tromethamine 30 mg Q8HPRN PRN IV 03/07/25 15:30 03/12/25 15:29 03/08/25 09:31 30 MG Examination Pt is lying on bed General Appearance: Alert, Oriented X3, Cooperative, Mild distress HEENT: Atraumatic, Mucous membranes moist/pink Respiratory: Clear to auscultation, Normal air movement, No added sounds Cardiovascular: Regular rate, Normal S1, Normal S2, No murmurs Abdominal/ : Active bowel sounds, Soft, no distention, no tenderness Extremities: No edema, Normal pulses, No tenderness/swelling Skin: No Significant rash, except past surgical scars Neuro: Normal speech, sensorimotor deficits none Psych/Mental Status: Mental status NL, Mood NL Nurse was there as training engineer during examination laboratory and microbiology Laboratory Tests 03/08/25 05:20 03/07/25 15:47 Test 03/07/25 15:47 Range/Units Serum Glucose 96 74-106 mg/dL Microbiology Date/Time Source Procedure Growth Status 03/05/25 13:03 Sputum Gram Stain - Final Complete 03/05/25 13:03 Sputum Respiratory Culture - Final Complete 03/05/25 13:00 Nose MRSA Screen - Final Complete 03/04/25 23:06 Blood Blood Culture - Preliminary NO GROWTH AFTER 72 HOURS OF INCUBATION. Resulted Labs and/or images reviewed: Labs reviewed by me, Image(s) reviewed by me Problem List/Assessment/Plan Problem List/Assessment/Plan Acute hypoxic respiratory failure due to COPD exacerbation/pneumonia COPD exacerbation possible pneumonia Gram-positive/Gram-negative bacteria Sepsis due to above MRSA Blood culture negative after 24 hours sputum g stain shows rare white blood cells seen, rare epithelial cells, few Gram-positive cocci in pairs, rare Gram-positive rods, mucus threads sputum culture normal oropharyngeal dio ABG: PH 7.4, pCO2 30.5 which is low, ABG PO2 59.7 low, ABG bicarbonate 20.9 low, ABG oxygen saturation 90.5 low IV fluids Lactic acid Elevated, trending down Albuterol, ipratropium med nebs q.4 Patient's WBC trending down, currently 2.1, most likely viral infection. azithromycin Prednisone 40 mg p.o. EKG: Premature ventricular contractions, no acute ischemic changes Echo: LVEF is normal at 60-65%, Right ventricle size and function is normal Asthma - albuterol med neb Epilepsy - Keppra 750 b.i.d. continued GERD -Protonix continued Regular diet PPI prophylaxis: Protonix DVT prophylaxis: Lovenox Goals of care addressed with the patient for more than 27 minutes: Full code status Case discussed with Dr. Edwards, patient and nurse Plan discussed with: Patient, Other My Orders My Orders Orders - ONEIL SOLITARIO RESIDENT Procedure Category Date Status Time Chest Xray 1 View XY 03/08/25 Resulted 09:46 Visit Coding STANDARD RES Billing Provider: ESTEBAN EDWARDS MD Date of Service if different f: Mar 08, 2025 Common Visit Codes: [id number] INP/OBS CARE(HIGH) ONEIL SOLITARIO RESIDENT Mar 08, 2025 17:49 ESTEBAN EDWARDS MD Mar 08, 2025 23:55
[2025-03-09] VITALS (18 sets, daily range): BP systolic 110–147; BP diastolic 76–91; PULSE 56–94; RESP 16–20; TEMP 97.7–98.3; O2SAT 61–100
[2025-03-09 07:18] LABS: Hematocrit 35.5 % (36.0-46.0); Hemoglobin 12.2 g/dL (12.2-16.2); Mean Corpuscular Hemoglobin 30.8 pg (28.0-32.0); Mean Corpuscular Volume 89.8 fL (80.0-100.0); Nucleated Red Blood Cells % 0.2 %
[2025-03-09 07:33] LABS: Alanine Aminotransferase 80 U/L (7-40); Albumin 3.5 g/dL (3.2-4.8); Alkaline Phosphatase 58 U/L (46-116); Anion Gap 6 (5-15); BUN/Creatinine Ratio 19.5 (10.0-20.0); Blood Urea Nitrogen 16 mg/dL (9-23); Calcium 9.3 mg/dL (8.7-10.4); Carbon Dioxide 27 mmol/L (20-31); Chloride 109 mmol/L (98-107); Glucose 83 mg/dL (74-106); Potassium 4.3 mmol/L (3.5-5.1); Sodium 142 mmol/L (136-145); Total Protein 5.5 g/dL (5.7-8.2)
[2025-03-09 07:34] LABS: Bilirubin, Total 0.3 mg/dL (0.2-1.0)
--- NOTE | 2025-03-09 19:59 | DVHPNRES ---
Progress Note Date Seen: Mar 09, 2025 Resident Creating Document: ONEIL SOLITARIO RESIDENT Medical Necessity Reason Pt with a Central, PICC or Fol: No Subjective Review of Systems Patient is a 64-year-old female with past medical history of COPD, Epilepsy on Keppra, asthma, GERD who came to the ED with chief complaints of shortness of the breath, chest tightness, cough associated with fever, chills since 3 days . Patient states that she does not use home oxygen, uses albuterol inhaler as needed and has attempted using it multiple times with no relief since 3 days. She also states that she had walking pneumonia 2 weeks ago for which she was prescribed oral antibiotics and finish the course. Patient denies any nausea, vomiting, dizziness, weakness. The patient and her 2 sisters went to [facility], all of them had flu-like symptoms. The patient's symptoms were the worst amongst all of them. PMHx: COPD, epilepsy on Keppra, asthma, GERD PSHx: Denies Family history: reviewed, noncontributory Social history: smoked half pack a day since 40 years, drinks occasionally, marijuana edibles at night occasionally Home medication: Keppra 750 b.i.d. albuterol inhaler Allergic history: penicillin, codeine, baclofen PCP: Dr. Medina (based on [place]) The patient was seen and examined at bedside. She reports feeling better with improved breathing.. No other new complaints reported. Objective vital signs Vital Sign Date Time Temp Pulse Resp B/P (MAP) Pulse Ox O2 Delivery O2 Flow Rate FiO2 03/09/25 16:30 98.3 88 19 126/79 (95) 92 98.3 03/09/25 10:00 Room Air* 0 21 Total Intake and Output 03/08/25 03/08/25 03/09/25 15:00 23:00 07:00 Intake Total 720 ml 375 ml Balance 720 ml 375 ml medications Current Medications Medications Dose Ordered Sig/G[place] Route Start Time Stop Time Status Last Admin Dose Admin Acetaminophen 650 mg Q6HP PRN PO 03/04/25 22:30 03/07/25 05:10 650 MG Enoxaparin Sodium 40 mg DAILY SC 03/04/25 22:30 03/09/25 09:35 40 MG Albuterol 2.5 mg Q4HPRN PRN NEB 03/04/25 22:30 03/09/25 14:41 2.5 MG Ipratropium [place] 0.5 mg Q4HWA NEB 03/05/25 06:00 03/09/25 18:11 0.5 MG Levetiracetam 750 mg BID PO 03/05/25 10:00 03/09/25 09:36 750 MG Pantoprazole Sodium 40 mg DAILY@0600 PO 03/05/25 06:00 03/09/25 05:37 40 MG Azithromycin 500 mg DAILY PO 03/04/25 23:15 03/09/25 09:36 500 MG Prednisone 40 mg DAILY PO 03/06/25 10:00 03/09/25 09:36 40 MG Guaifenesin/ Dextromethorphan 10 ml Q4HP PRN PO 03/05/25 12:30 03/09/25 10:03 10 ML Alprazolam 0.25 mg Q12HP PRN PO 03/05/25 12:30 03/09/25 14:20 0.25 MG Morphine Sulfate 1 mg Q4HP PRN IV 03/05/25 13:00 03/08/25 18:28 1 MG Ketorolac Tromethamine 30 mg Q8HPRN PRN IV 03/07/25 15:30 03/12/25 15:29 03/09/25 09:36 30 MG Ceftriaxone Sodium 50 ml @ 100 mls/hr DAILY@09 IV 03/09/25 12:00 Hold Examination Pt is lying on bed General Appearance: Alert, Oriented X3, Cooperative, Mild distress HEENT: Atraumatic, Mucous membranes moist/pink Respiratory: Wheezing present, Normal air movement, No added sounds Cardiovascular: Regular rate, Normal S1, Normal S2, No murmurs Abdominal/ : Active bowel sounds, Soft, no distention, no tenderness Extremities: No edema, Normal pulses, No tenderness/swelling Skin: No Significant rash, except past surgical scars Neuro: Normal speech, sensorimotor deficits none Psych/Mental Status: Mental status NL, Mood NL Nurse was there as shank archer during examination laboratory and microbiology Laboratory Tests 03/09/25 06:10 Test 03/09/25 06:10 Range/Units Serum Glucose 83 74-106 mg/dL Microbiology Date/Time Source Procedure Growth Status 03/05/25 13:03 Sputum Gram Stain - Final Complete 03/05/25 13:03 Sputum Respiratory Culture - Final Complete 03/05/25 13:00 Nose MRSA Screen - Final Complete 03/04/25 23:06 Blood Blood Culture - Preliminary NO GROWTH AFTER 72 HOURS OF INCUBATION. Resulted Labs and/or images reviewed: Labs reviewed by me, Image(s) reviewed by me Problem List/Assessment/Plan Problem List/Assessment/Plan Acute hypoxic respiratory failure due to COPD exacerbation/pneumonia COPD exacerbation possible pneumonia Gram-positive/Gram-negative bacteria Sepsis due to above MRSA Blood culture negative after 24 hours sputum g stain shows rare white blood cells seen, rare epithelial cells, few Gram-positive cocci in pairs, rare Gram-positive rods, mucus threads sputum culture normal oropharyngeal dio ABG: PH 7.4, pCO2 30.5 which is low, ABG PO2 59.7 low, ABG bicarbonate 20.9 low, ABG oxygen saturation 90.5 low IV fluids Lactic acid Elevated, trending down Albuterol, ipratropium med nebs q.4 Patient's WBC trending down, currently 2.1, most likely viral infection. azithromycin Prednisone 40 mg p.o. EKG: Premature ventricular contractions, no acute ischemic changes Echo: LVEF is normal at 60-65%, Right ventricle size and function is normal Asthma - albuterol med neb Epilepsy - Keppra 750 b.i.d. continued GERD -Protonix continued Regular diet PPI prophylaxis: Protonix DVT prophylaxis: Lovenox Goals of care addressed with the patient for more than 27 minutes: Full code status Case discussed with Dr. Edwards, patient and nurse Plan discussed with: Patient, Other Plan discussed with: Patient, Other (RN) Visit Coding STANDARD RES Billing Provider: ESTEBAN EDWARDS MD Date of Service if different f: Mar 10, 2025 Common Visit Codes: [id number] INP/OBS CARE(HIGH) KASSIONEIL RESIDENT Mar 09, 2025 19:59
[2025-03-10] VITALS (12 sets, daily range): BP systolic 114–133; BP diastolic 77–88; PULSE 69–81; RESP 16–18; TEMP 97.1–97.9; O2SAT 93–100
[2025-03-10] MEDS ORDERED: PRED20TA2 PO (10:10)
[2025-03-10] MEDS ORDERED: TRAM50TA2 PO (12:15)
[2025-03-10] MEDS ORDERED: AZIT-74 PO (12:37)
--- NOTE | 2025-03-10 17:17 | DVHDSRES ---
Discharge Summary Date of Admission Resident Creating Document: ONEIL SOLITARIO Mar 04, 2025 at 22:27 Date of Discharge: Mar 10, 2025 Admitting Diagnosis Acute hypoxic respiratory failure Labs/Diagnostic Data: Laboratory Results Test 03/09/25 06:10 03/05/25 13:00 03/05/25 00:58 03/04/25 18:42 White Blood Count 8.0 10^3/uL (4.4-10.8) Red Blood Count 3.95 10^6/uL (4.0-5.20) Hemoglobin 12.2 g/dL (12.2-16.2) Hematocrit 35.5 % (36.0-46.0) Mean Corpuscular Volume 89.8 fL (80.0-100.0) Mean Corpuscular Hemoglobin 30.8 pg (28.0-32.0) Mean Corpuscular Hemoglobin Concent 34.3 g/dL (32.0-36.0) Red Cell Distribution Width 14.3 % (11.8-14.3) Platelet Count 329 10^3/uL (140-450) Mean Platelet Volume 7.5 fL (6.9-10.8) Neutrophils (%) (Auto) 55.1 % (37.0-80.0) Lymphocytes (%) (Auto) 36.5 % (10.0-50.0) Monocytes (%) (Auto) 8.1 % (0.0-12.0) Eosinophils (%) (Auto) 0.2 % (0.0-7.0) Basophils (%) (Auto) 0.1 % (0.0-2.0) Neutrophils # (Auto) 4.4 10 ^3/uL (1.6-8.6) Lymphocytes # (Auto) 2.9 10 ^3/uL (0.4-5.4) Monocytes # (Auto) 0.6 10 ^3/uL (0-1.3) Eosinophils # (Auto) 0 10 ^3/uL (0-0.8) Basophils # (Auto) 0 10 ^3/uL (0-0.2) Nucleated Red Blood Cells 0.2 % Sodium Level 142 mmol/L (136-145) Potassium Level 4.3 mmol/L (3.5-5.1) Chloride Level 109 mmol/L (98-107) Carbon Dioxide Level 27 mmol/L (20-31) Anion Gap 6 (5-15) Blood Urea Nitrogen 16 mg/dL (9-23) Creatinine 0.82 mg/dL (0.550-1.02) Glomerular Filtration Rate Calc 80 mL/min (>90) BUN/Creatinine Ratio 19.5 (10.0-20.0) Serum Glucose 83 mg/dL (74-106) Calcium Level 9.3 mg/dL (8.7-10.4) Total Bilirubin 0.3 mg/dL (0.2-1.0) Aspartate Amino Transferase (AST) 34 U/L (13-40) Alanine Aminotransferase (ALT) 80 U/L (7-40) Alkaline Phosphatase 58 U/L (46-116) Total Protein 5.5 g/dL (5.7-8.2) Albumin 3.5 g/dL (3.2-4.8) Urine Color Light-yellow (Yellow) Urine Clarity Clear (Clear) Urine pH 6.5 (5.0-9.0) Urine Specific [place] 1.022 (1.001-1.035) Urine Protein Negative (Negative) Urine Ketones Negative (Negative) Urine Blood Negative /uL (Negative) Urine Nitrite Negative (Negative) Urine Bilirubin Negative (Negative) Urine Urobilinogen Normal mg/dL (Negative) Urine Leukocyte Esterase Negative /uL (Negative) Urine RBC 2 /hpf (0 - 4) Urine Microscopic WBC 1 /HPF (0-5) Urine Squamous Epithelial Cells Few /hpf (<5) Urine Bacteria None seen /hpf (None Seen) Urine Mucus Few (None Seen) Urine Glucose Normal mg/dL (Normal) Urine Opiates Screen Neg (NEGATIVE) Urine Fentanyl Screen Neg (NEGATIVE) Urine Barbiturates Screen Neg (NEGATIVE) Urine Phencyclidine Screen Neg (NEGATIVE) Urine Amphetamines Screen Neg (NEGATIVE) Urine Benzodiazepines Screen Neg (NEGATIVE) Urine Cocaine Screen Neg (NEGATIVE) Urine Cannabinoids Screen Neg (NEGATIVE) Lactic Acid Level 1.4 mmol/L (0.4-2.0) Differential Total Cells Counted 100.0 (100) Neutrophils % (Manual) 32 (37.0-80.0) Band Neutrophils % (Manual) 0 Lymphocytes % (Manual) 58 (10.0-50.0) Monocytes % (Manual) 9 (0-12) Eosinophils % (Manual) 1 (0-7) Basophils % (Manual) 0 (0.0-2.0) Metamyelocytes % (manual) 0 Myelocytes % (Manual) 0 Promyelocytes % (Manual) 0 Blast Cells % (Manual) 0 Reactive Lymphocytes 0 Platelet Estimate Adequate Red Blood Cell Morphology Normal D-Dimer, Quantitative 0.50 mg/L FEU (0.0-0.49) Magnesium Level 2.2 mg/dL (1.6-2.6) Troponin I High Sensitivity 3 ng/L (</=34) B-Type Natriuretic Peptide 10.82 pg/mL (0-100) Test 03/04/25 18:40 03/04/25 18:38 Blood Gas Specimen Type Arterial Blood Gas Sample Site Left radial Blood Gas Patient Temperature 37.0 Arterial Blood Date Drawn [id number] Arterial Blood pH 7.453 (7.350-7.450) Arterial Blood Partial Pressure CO2 30.5 mmHg (32.0-45.0) Arterial Blood Partial Pressure O2 59.7 mmHg (83.0-108.0) Arterial Blood HCO3 20.9 mmol/L (21.0-28.0) Arterial Blood Oxygen Saturation 90.5 % (94.0-98.0) Arterial Blood Base Excess -1.9 mmol/L (-2.0-3.0) Arterial Blood Oxyhemoglobin 89.2 % (94.0-98.0) Arterial Blood Carboxyhemoglobin 0.9 % (0.5-1.5) Arterial Blood Methemoglobin 0.5 % (0.0-1.5) Arterial Blood Deoxyhemoglobin 9.4 % (0.0-5.0) [place] Test Yes Blood Gas Total Hemoglobin 15.30 g/dL (12.0-16.0) Blood Gas Modality Room air FiO2 % 21.0 Influenza Type A Antigen Negative (Negative) Influenza Type B Antigen Negative (Negative) SARS-CoV-2 Antigen (Rapid) Negative (NEGATIVE) Other Laboratory Tests 03/09/25 06:10 Brief Hx & Hospital Course: Gera Pablo, is a 64-year-old female with past medical history of COPD, Epilepsy on Keppra, asthma, GERD who came to the ED with chief complaints of shortness of the breath, chest tightness, cough associated with fever, chills since 3 days . Patient states that she does not use home oxygen, uses albuterol inhaler as needed and has attempted using it multiple times with no relief since 3 days. She also states that she had walking pneumonia 2 weeks ago for which she was prescribed oral antibiotics and finish the course. Patient denies any nausea, vomiting, dizziness, weakness. The patient and her 2 sisters went to [facility], all of them had flu-like symptoms. The patient's symptoms were the worst amongst all of them. PMHx: COPD, epilepsy on Keppra, asthma, GERD PSHx: Denies Family history: reviewed, noncontributory Social history: smoked half pack a day since 40 years, drinks occasionally, marijuana edibles at night occasionally Home medication: Keppra 750 b.i.d. albuterol inhaler Allergic history: penicillin, codeine, baclofen PCP: Dr. Medina (based on [place]) Brief Hospital Course: The patient was treated for COPD exacerbation with IV antibiotics ceftriaxone and azithromycin, breathing treatments and IV steroids were given. Patient's symptoms gradually improve. On the day of discharge there was only minimal wheezing. Her seizure medications were continued throughout her stay. She was treated with pantoprazole for GERD. Her musculoskeletal chest pain was treated with Toradol. On the day of discharge patient was hemodynamically stable, verbalized understanding of the treatment and discharge plan. Pt is lying on bed General Appearance: Alert, Oriented X3, Cooperative, Mild distress HEENT: Atraumatic, Mucous membranes moist/pink Respiratory: Very minimal wheezing, Normal air movement, No added sounds Cardiovascular: Regular rate, Normal S1, Normal S2, No murmurs Abdominal/ : Active bowel sounds, Soft, no distention, no tenderness Extremities: No edema, Normal pulses, No tenderness/swelling Skin: No Significant rash, except past surgical scars Neuro: Normal speech, sensorimotor deficits none Psych/Mental Status: Mental status NL, Mood NL Nurse was there as [employer] crew boss during examination Operations or Procedures PATIENT: GERA PABLO ACCT: [id number] UNIT: [id number] : 1960 [facility] AGE / SEX: 64 / F ADM STATUS: ADM IN SERVICE [id number] ORDERING PHYSICIAN: ONEIL SOLITARIO RESIDENT PROCEDURE(s): CXR1 - CHEST XRAY 1 VIEW REASON: sob ORDER NUMBER(s): [id number], ACCESSION NUMBER(s): [id number] CHEST RADIOGRAPH INDICATION: sob TECHNIQUE: Single frontal view of the chest was obtained COMPARISON: XY CHEST XRAY 1 VIEW on DOS: 03/04/25, XR CHEST 1 VIEW on DOS: 09/13/23 FINDINGS: Lines and Tubes: None Lungs: No focal consolidation. Pleura: No effusion. No pneumothorax. Cardiomediastinal contours: Unremarkable Bones: No acute osseous abnormality. IMPRESSION: 1. No acute cardiopulmonary disease. PATIENT: GERA PABLO ACCT: [id number] UNIT: [id number] : 1960 LOC: ER ROOM / BED: / AGE / SEX: 64 / F ADM STATUS: REG ER SERVICE 21 ORDERING PHYSICIAN: ZHENG ISBELL MD PROCEDURE(s): CXR1 - CHEST XRAY 1 VIEW REASON: Shortness of breath ORDER NUMBER(s): [id number], ACCESSION NUMBER(s): [id number] EXAM: XY CHEST XRAY 1 VIEW HISTORY: Shortness of breath TECHNIQUE: 1 view of the chest COMPARISON: XR CHEST 1 VIEW on DOS: 09/13/23 FINDINGS/IMPRESSION: LUNGS: No pleural effusion, consolidation, or pneumothorax. MEDIASTINUM: Unremarkable. BONES: No acute osseous abnormality. OTHER: None. Condition at Discharge: Stable Final Diagnosis/Problems List Acute hypoxic respiratory failure due to COPD exacerbation/pneumonia possible pneumonia Gram-positive/Gram-negative bacteria Sepsis due to above Asthma Epilepsy GERD Discharge Disposition: Home Discharge Instruct/Medications Diet: Cardiac 2g Na,low cholest Activity: No Restrictions, As Tolerated Follow Up/Referral: Follow up outpatient with PCP and DC clinic Medications: as per EMR Scheduled Azithromycin (Zithromax), 250 MG PO DAILY Prednisone (Prednisone), 40 MG PO DAILY Scheduled PRN Albuterol Sulfate (Albuterol Sulfate), 1 VIAL NEB Q4HPRN PRN Ipratropium-Albuterol (Ipratropium [place]/Albut), 1 FRANKO IN Q4HPRN PRN Tramadol Hcl (Tramadol Hcl), 50 MG PO Q6HP PRN Tramadol Hcl (Tramadol Hcl), 50 MG PO Q6HPRN PRN Miscellaneous Medications Quetiapine Fumerate (Seroquel), (Reported) Sertraline Hcl (Zoloft), (Reported) Trazodone Hcl (Trazodone Hcl), (Reported) Discontinued Medications Azithromycin (Zithromax), 500 MG PO DAILY Carisoprodol (Soma), (Reported) Hydrocodone-Acetaminophen (Vicodin), (Reported) Methylprednisolone (Medrol Dosepak), 4 MG PO UD Prednisone (Prednisone), 40 MG PO DAILY Durable Medical Equipment Respiratory Therapy Supplies (Full Kit Nebulizer Set), UNIT XX ONCE, (DME) Discharge Statement: "Patient was advised to return to the ER or call 911 if any headaches, dizziness, shortness of breath, chest pain, abdominal pain, bleeding, fevers, or worsening of medical condition. Patient was counseled about treatment plan, medications, possible side effects, patientverbalized understanding. All questions were answered to the best of my ability. This discharge took greater then 30 minutes in planning, reviewing documentation, counseling the patient, and discussing with other team members." ASSESSMENT ASSESSMENT Assessment COPD exacerbation Visit Coding STANDARD RES Billing Provider: ESTEBAN EDUARDO MD Date of Service if different f: Mar 10, 2025 Common Visit Codes: 47769-UXW/OBS DISCH DAY >30min ONEIL SOLITARIO Mar 10, 2025 17:17 ESTEBAN EDUARDO MD Mar 11, 2025 23:35
== END 2025-03-10 14:42 | disposition home or self-care (01) | DRG 720 ==
LOC: ER 18:11 → OVERFLOW 22:27 → TELE-WESTW 03-05 02:52
PROVIDERS: ADMIT Internal Medicine; ATTEND Internal Medicine
DX: A41.50 Gram-negative sepsis, unspecified (principal); J96.01 Acute respiratory failure with hypoxia; J15.69 Pneumonia due to other Gram-negative bacteria; J15.9 Unspecified bacterial pneumonia; J44.0 Chronic obstructive pulmonary disease with (acute) lower respiratory infection; G40.909 Epilepsy, unspecified, not intractable, without status epilepticus; J44.1 Chronic obstructive pulmonary disease with (acute) exacerbation; K21.9 Gastro-esophageal reflux disease without esophagitis; Z20.822 Contact with and (suspected) exposure to COVID-19; F17.210 Nicotine dependence, cigarettes, uncomplicated; Z90.710 Acquired absence of both cervix and uterus; Z88.5 Allergy status to narcotic agent; Z88.0 Allergy status to penicillin; Z88.8 Allergy status to other drugs, medicaments and biological substances; Z79.899 Other long term (current) drug therapy
CPT/HCPCS: 36415; 36600; 71045; 80048; 80053; 80307; 81001; 82805; 83605; 83735; 83880; 84484; 85007; 85025; 85027; 85379; 87040; 87070; 87081; 87205; 87426; 87804; 93005; 93306; 94640; 96361; 96372; G0378; J1100; J1885